=== PATIENT | female | born 1930 | race Caucasian/White ===

== ENCOUNTER 2018-05-05 19:56 | Inpatient (IN) | payer MEDICARE, OTHER ==
[~2018-05-05 19:56] MED LIST: ISOVUE-370 76%-LOCM 1 ML ONE
--- NOTE | 2018-05-05 21:07 | CT ---
CT ABDOMEN AND PELVIS WITH CONTRAST: 05/05/18 Multiple axial tomograms obtained through the abdomen and pelvis with IV enhancement. INDICATIONS: Abdominal pain. Sepsis. Lung bases appear clear. Large fixed diaphragmatic hernia with stomach above the diaphragm. Liver, spleen and pancreas unremarkable. Post cholecystectomy changes. Adrenal glands normal. Kidneys show cortical thinning. There is small bilateral renal cystic lesions. No hydronephrosis or u reteral calculus. Small bowel loops appear normal caliber. Prominent stool throughout the colon. Diverticulosis of the left colon. The uterus and adnexa are unremarkable. There appears to be a pessary in place. Prominent stool in th e rectum may represent constipation. Aorta is normal caliber. IMPRESSION: 1. Large fixed diaphragmatic hernia. 2. No acute process identified. POS: [facility]
[2018-05-05] MEDS ORDERED: Acetaminophen 325 MG TAB PO PRN (22:48)
[2018-05-05] MEDS ORDERED: Ondansetron HCl/PF 4 MG/2 ML Vial IVP PRN (22:48)
--- NOTE | 2018-05-06 00:26 | HP ---
CODE STATUS: DNR as per patient's living will. PRIMARY CARE PHYSICIAN: The patient goes to see ____. TIME OF EVALUATION: 10:25 p.m. CHIEF COMPLAINT: The patient was confused. HISTORY OF PRESENT ILLNESS: This is an 87-year-old female patient transferred to our ER because the patient was having some change in mental status. She reported having cough, associated with pain that has been present for the past few days, no clear triggers, no alleviating factors for the cough. The pain has been moderate. The patient also reported having some burning with urination. She was found to have a lactate of 2.4, with a white count elevated , started on broad-spectrum antibiotic, UA was positive. REVIEW OF SYSTEMS: Constitutional: Generalized weakness. No fever reported. No chills. Respiratory: The patient has cough and pleuritic chest pain. No sputum production. Also reported shortness of breath. Cardiovascular: No chest pain, palpitation, or shortness of breath. Gastrointestinal: No nausea or vomiting. No diarrhea. No abdominal pain. [employer]: No dizziness, headache, or feeling lightheaded. Genitourinary: No burning on urination. Extremities: Bilateral leg swelling. All other systems were reviewed and negative except for the findings mentioned above. PAST MEDICAL HISTORY: Positive for GERD, hypertension, osteoarthritis, COPD. PAST SURGICAL HISTORY: Right wrist, cholecystectomy, left arm surgery. PSYCHIATRIC HISTORY: No previous psychiatric history. FAMILY HISTORY: The patient reported mother having diabetes; and father having a stroke, at young age. SOCIAL HISTORY: No alcohol. No drugs. No smoking history. ALLERGIES: The patient has no known drug allergies. MEDICATIONS: Lasix, prednisone, allopurinol, pantoprazole, metoprolol, potassium p.o., calcitriol, folic acid, vitamin E, Tums, Robitussin. PHYSICAL EXAMINATION: VITAL SIGNS: On presentation, blood pressure 151/85, pulse 101, respiratory rate 18, temperature 98.7, pain was 8/10, saturation 99% on room air. GENERAL APPEARANCE: Alert, oriented, not in any acute distress. HEENT: Eye, normal conjunctivae. Moist oral mucosa. Anicteric. NECK: No JVD. RESPIRATORY: Bilateral air entry. No rales, no wheezing. Symmetric expansion. CARDIOVASCULAR: Normal rate, regular rhythm. No murmurs. No gallop. Bilateral leg edema. ABDOMEN: Soft. Normal bowel sounds. MUSCULOSKELETAL: Baseline range of motion and strength. No tenderness. SKIN: Warm and intact. No pallor, no rash, no redness. NEUROLOGIC: Baseline sensorium. No evidence of any new focal weakness. Baseline speech. Cranial nerve, sensory intact. PSYCHIATRIC: Good mood. No anxiety. Oriented. Optimal judgment. LABORATORY DATA: Reviewed with the ER doctor. It was reported that the patient has lactic acidosis of 2.4 with white count 19.8. No other abnormal labs were reported. Abdomen and pelvis CT was done, it reported large fixed diaphragmatic hernia, no acute process. UA was positive. ASSESSMENT AND PLAN: The patient was placed in the hospital with following medical problems. 1. Possible sepsis. The patient has reported fever, lactic acidosis, white count 19.8, likely source is urinary tract infection. Urinalysis reported positive by the ER doctor during admission discussion. hyration, follow cultures , adjust antibiotics as needed. 2. Urinary tract infection, urinalysis positive. The patient received broad- spectrum antibiotics, I will continue for now.follow cultures , adjust asper sensitivity. 3. Uncontrolled hypertension with systolic 151. Reconcile home medications. Adjust treatment as needed. 4. Acute encephalopathy. During my interview, the patient seems to be able to answer simple questions and seems oriented; however, it has been reported that she was confused prior to arrival, likely secondary to underlying infection. 5. History of gout. Continue allopurinol. 6. History of chronic obstructive pulmonary disease. We will reconcile home medications. Once updated, we will adjust treatment as needed. 7. Possible history of congestive heart failure. The patient has been on diuretics. She does not recall details on this. We will reconcile home medications. We will not treat aggressively since the patient is with possible sepsis. 8. Deep venous thrombosis prophylaxis. [facility]
[2018-05-06 01:38] VITALS: BMI 29.0
[2018-05-06 04:50] LABS: #Eosinphils 0.1 thou/uL (0.0-0.7); #Lymphocytes 0.8 thou/uL (1.20-3.40); #Neutrophils 9.3 thou/uL (1.40-6.50); %Basophils 0.3 % (0.0-1.0); %Eosinophils 0.6 % (0.0-10.0); %Lymphocytes 7.1 % (21.0-51.0); %Monocytes 8.8 % (0.0-10.0); %Neutrophils 83.3 % (42.0-75.0); Hemoglobin 8.6 g/dL (12.0-16.0); Mean Corpuscular HGB CONC 33.1 g/dL (32.0-36.0); Mean Corpuscular Hemoglobin 30.9 pg (27.0-31.0); Mean Corpuscular Volume 93.4 fL (78.0-98.0); Mean Platelet Volume 8.4 fL (7.4-10.4); Platelet Count 179 thou/uL (130-400); RBC Distribution Width 13.1 % (11.5-14.5); Red Blood Cell (RBC) Count 2.79 mill/uL (4.20-5.40); White Blood Cell (WBC) Count 11.2 thou/uL (4.8-10.8)
[2018-05-06 05:05] LABS: Anion Gap 12 mmol/L (10-20); BUN (Urea Nitrogen) 26 mg/dL (9.8-20.1); Calc. Creatinine Clearance 54 mL/min (70-130); Calcium 8.3 mg/dL (7.8-10.44); Carbon Dioxide 22 mmol/L (23-31); Chloride 107 mmol/L (98-107); Estimated GFR-MDRD 53; Glucose 95 mg/dL (83-110); Potassium 3.8 mmol/L (3.5-5.1); Sodium 137 mmol/L (136-145)
[2018-05-06] MEDS: Enoxaparin Sodium 40 MG/0.4 ML SYRINGE SC SCH (08:30)
[2018-05-06] MEDS ORDERED: Diabetic Tussin 200 MG/10 ML UDCUP PO PRN (12:18)
[2018-05-06] MEDS ORDERED: Labetalol HCl 100 MG/20 ML VIAL SLOW IVP PRN (12:18)
[2018-05-06] MEDS ORDERED: Temazepam 15 MG CAP PO PRN (12:18)
[2018-05-06] MEDS ORDERED: Benzonatate 100 MG CAP PO PRN (12:18)
[2018-05-06] MEDS ORDERED: cloNIDine 0.1 MG TAB PO PRN (12:18)
[2018-05-06] MEDS ORDERED: Phenergan/Codeine 10-6.25mg/5ml UDCUP PO PRN (12:18)
[2018-05-06] MEDS ORDERED: Docusate 100 MG CAP PO PRN (12:18)
[2018-05-06] MEDS ORDERED: diphenhydrAMINE 50 MG/ML VIAL IVP PRN (12:18)
[2018-05-06] MEDS ORDERED: Nitroglycerin 0.4 MG TAB (25 Tab Bottle) SL PRN (12:18)
[2018-05-06] MEDS ORDERED: Chloraseptic Spray 180 ml Bottle PO PRN (12:18)
--- NOTE | 2018-05-06 12:23 | PDOC.PN ---
- Subjective Encounter Start Date: 05/06/18 Encounter Start Time: 10:30 Subjective: awake, feels weak -: no sob or palp or abd pain -: no nausea or vomiting - Objective Resuscitation Status: Resuscitation Status DNR:Do Not Resuscitate MAR Reviewed: Yes Vital Signs & Weight: Vital Signs (12 hours) Temp Pulse Resp BP Pulse Ox 05/06/18 11:28 98.2 F 86 16 137/90 95 05/06/18 08:00 97.6 F 75 16 97 05/06/18 07:35 97.6 F 75 16 114/78 95 05/06/18 04:46 98.0 F 76 18 118/70 98 05/06/18 01:20 98.5 F 88 20 97 05/06/18 01:00 98.5 F 88 20 121/64 97 Weight Weight 184 lb 15.485 oz I&O: 05/05/18 05/06/18 05/07/18 06:59 06:59 06:59 Intake Total 450 Balance 450 Result Diagrams: 05/06/18 03:58 05/06/18 03:58 Phys Exam - Physical Examination HEENT: PERRLA dry mucosa Neck: no JVD, supple Respiratory: no wheezing, no rales Cardiovascular: RRR, no significant murmur Gastrointestinal: soft, non-tender, positive bowel sounds Musculoskeletal: no edema, pulses present Neurological: non-focal, moves all 4 limbs Psychiatric: normal affect, A&O x 3 Dx/Plan (1) Sepsis Code(s): A41.9 - SEPSIS, UNSPECIFIED ORGANISM Status: Acute Qualifiers: Sepsis type: sepsis due to unspecified organism Qualified Code(s): A41.9 - Sepsis, unspecified organism (2) UTI (urinary tract infection) Status: Acute Qualifiers: Urinary tract infection type: acute cystitis Hematuria presence: without hematuria Qualified Code(s): N30.00 - Acute cystitis without hematuria (3) Acute encephalopathy Code(s): G93.40 - ENCEPHALOPATHY, UNSPECIFIED Status: Resolved (4) Psoriasis Code(s): L40.9 - PSORIASIS, UNSPECIFIED Status: Chronic (5) Hiatal hernia Code(s): K44.9 - DIAPHRAGMATIC HERNIA WITHOUT OBSTRUCTION OR GANGRENE Status: Chronic Comment: large (6) Chronic anemia Code(s): D64.9 - ANEMIA, UNSPECIFIED Status: Chronic (7) HTN (hypertension) Code(s): I10 - ESSENTIAL (PRIMARY) HYPERTENSION Status: Chronic Qualifiers: Hypertension type: essential hypertension Qualified Code(s): I10 - Essential (primary) hypertension (8) COPD (chronic obstructive pulmonary disease) Status: Chronic Qualifiers: COPD type: unspecified COPD Qualified Code(s): J44.9 - Chronic obstructive pulmonary disease, unspecified - Plan is on ceftriaxone -: continue home dose of prednisone (for severe OA per patient,on it for >10y) -: await cultures -: to amb as tolerated -: encourage po intake * . Review of Systems - Medications/Allergies Allergies/Adverse Reactions: Allergies Allergy/AdvReac Type Severity Reaction Status Date / Time No Known Drug Allergies Allergy Unverified 05/05/18 22:58 Medications: Current Medications Acetaminophen (Tylenol) 650 mg PO Q4H PRN PRN Reason: Headache/Fever or Pain Allopurinol (Zyloprim) 100 mg PO DAILY [facility] Benzonatate (Tessalon) 200 mg PO Q6H PRN PRN Reason: Cough Calcium Carbonate (Tums) 1,000 mg PO BID [facility] Clonidine (Catapres) 0.1 mg PO Q4H PRN PRN Reason: Systolic BP > 180 Diphenhydramine HCl (Benadryl) 25 mg IVP Q4H PRN PRN Reason: Itching Docusate Sodium (Colace) 100 mg PO BIDPRN PRN PRN Reason: Constipation Enoxaparin Sodium (Lovenox) 40 mg SC 0900 [facility] Last Admin: 05/06/18 08:30 Dose: 40 mg Guaifenesin (Robitussin Sf) 200 mg PO Q4H PRN PRN Reason: Cough Ceftriaxone Sodium 1 gm/ (Sodium Chloride) 100 mls @ 200 mls/hr IVPB Q24HR [facility] Labetalol HCl (Normodyne) 20 mg SLOW IVP Q4H PRN PRN Reason: Systolic BP > 180 Metoprolol Succinate (Toprol Xl) 25 mg PO BID [facility] Nitroglycerin (Nitrostat) 0.4 mg SL Q5MIN PRN PRN Reason: Chest Pain Non-Formulary Medication (Folic Acid [Folic Acid]) 1 tab PO BID [facility] Ondansetron HCl (Zofran) 4 mg IVP Q6H PRN PRN Reason: Nausea/Vomiting Pantoprazole Sodium (Protonix) 40 mg PO BID [facility] Phenol (Chloraseptic [place] 180 Ml Bot) 0 ml PO PRN PRN PRN Reason: Sore Throat Prednisone (Prednisone) 3 mg PO DAILY [facility] Promethazine HCl/Codeine (Phenergan/Codeine Syrup) 5 ml PO Q4H PRN PRN Reason: Cough Temazepam (Restoril) 15 mg PO HSPRN PRN PRN Reason: Insomnia
[2018-05-06] MEDS: Folic Acid 1 MG TAB PO SCH (20:36)
[2018-05-06] MEDS: cefTRIAXone\\ROCEPHIN 1 GM in Sodium Chloride 0.9% 100 ML IVPB SCH (20:36)
[2018-05-06] MEDS: Calcium Carbonate 500 MG ChewTAB PO SCH (20:36)
[2018-05-07 07:46] LABS: #Eosinphils 0.2 thou/uL (0.0-0.7); #Lymphocytes 0.7 thou/uL (1.20-3.40); #Monocytes 0.7 thou/uL (0.11-0.59); #Neutrophils 7.2 thou/uL (1.40-6.50); %Basophils 0.1 % (0.0-1.0); %Eosinophils 2.1 % (0.0-10.0); %Lymphocytes 7.8 % (21.0-51.0); %Monocytes 8.4 % (0.0-10.0); %Neutrophils 81.6 % (42.0-75.0); Hemoglobin 8.7 g/dL (12.0-16.0); Mean Corpuscular Hemoglobin 30.2 pg (27.0-31.0); Mean Corpuscular Volume 94.4 fL (78.0-98.0); Mean Platelet Volume 7.8 fL (7.4-10.4); Platelet Count 203 thou/uL (130-400); Red Blood Cell (RBC) Count 2.89 mill/uL (4.20-5.40); White Blood Cell (WBC) Count 8.8 thou/uL (4.8-10.8)
[2018-05-07 08:05] LABS: Anion Gap 11 mmol/L (10-20); BUN (Urea Nitrogen) 26 mg/dL (9.8-20.1); Calc. Creatinine Clearance 59 mL/min (70-130); Calcium 8.9 mg/dL (7.8-10.44); Carbon Dioxide 23 mmol/L (23-31); Chloride 108 mmol/L (98-107); Estimated GFR-MDRD 59; Glucose 92 mg/dL (83-110); Potassium 3.9 mmol/L (3.5-5.1); Sodium 138 mmol/L (136-145)
[2018-05-07] MEDS: Calcium Carbonate 500 MG ChewTAB PO SCH ×2 (08:23→20:17)
[2018-05-07] MEDS: predniSONE 1 MG TAB PO SCH (08:23)
[2018-05-07] MEDS: guaiFENesin ER 600 MG TAB PO PRN (08:24)
[2018-05-07] MEDS: Allopurinol 100 MG TAB PO SCH (08:25)
[2018-05-07] MEDS: Folic Acid 1 MG TAB PO SCH ×2 (08:25→20:17)
[2018-05-07] MEDS: Enoxaparin Sodium 40 MG/0.4 ML SYRINGE SC SCH (08:47)
--- NOTE | 2018-05-07 11:24 | PDOC.PN ---
- Subjective Encounter Start Date: 05/07/18 Encounter Start Time: 11:00 Subjective: is amb in room, feels better - Objective Resuscitation Status: Resuscitation Status DNR:Do Not Resuscitate MAR Reviewed: Yes Vital Signs & Weight: Vital Signs (12 hours) Temp Pulse Resp BP Pulse Ox 05/07/18 08:00 98.0 F 80 18 05/07/18 07:36 98.0 F 80 18 126/89 94 L Weight Weight 184 lb 15.485 oz I&O: 05/06/18 05/07/18 05/08/18 06:59 06:59 06:59 Intake Total 450 Balance 450 Result Diagrams: 05/07/18 07:34 05/07/18 07:34 Phys Exam - Physical Examination HEENT: PERRLA, sclera anicteric Neck: no JVD, supple Respiratory: no wheezing, no rales Cardiovascular: RRR, no significant murmur Gastrointestinal: soft, non-tender, positive bowel sounds Musculoskeletal: no edema, pulses present Neurological: non-focal, moves all 4 limbs Psychiatric: A&O x 3 Dx/Plan (1) Sepsis Code(s): A41.9 - SEPSIS, UNSPECIFIED ORGANISM Status: Acute Qualifiers: Sepsis type: sepsis due to unspecified organism Qualified Code(s): A41.9 - Sepsis, unspecified organism (2) UTI (urinary tract infection) Status: Acute Qualifiers: Urinary tract infection type: acute cystitis Hematuria presence: without hematuria Qualified Code(s): N30.00 - Acute cystitis without hematuria (3) Acute encephalopathy Code(s): G93.40 - ENCEPHALOPATHY, UNSPECIFIED Status: Resolved (4) Psoriasis Code(s): L40.9 - PSORIASIS, UNSPECIFIED Status: Chronic (5) Hiatal hernia Code(s): K44.9 - DIAPHRAGMATIC HERNIA WITHOUT OBSTRUCTION OR GANGRENE Status: Chronic Comment: large (6) Chronic anemia Code(s): D64.9 - ANEMIA, UNSPECIFIED Status: Chronic (7) HTN (hypertension) Code(s): I10 - ESSENTIAL (PRIMARY) HYPERTENSION Status: Chronic Qualifiers: Hypertension type: essential hypertension Qualified Code(s): I10 - Essential (primary) hypertension (8) COPD (chronic obstructive pulmonary disease) Status: Chronic Qualifiers: COPD type: unspecified COPD Qualified Code(s): J44.9 - Chronic obstructive pulmonary disease, unspecified - Plan on ceftriaxone, await culture results from [facility] -: on home dose of prednisone, toprol and protonix -: to amb as tolerated -: dc plan when culture results are available * . Review of Systems - Medications/Allergies Allergies/Adverse Reactions: Allergies Allergy/AdvReac Type Severity Reaction Status Date / Time No Known Drug Allergies Allergy Verified 05/06/18 15:33 Medications: Current Medications Acetaminophen (Tylenol) 650 mg PO Q4H PRN PRN Reason: Headache/Fever or Pain Last Admin: 05/06/18 17:47 Dose: 650 mg Allopurinol (Zyloprim) 100 mg PO DAILY [facility] Last Admin: 05/07/18 08:25 Dose: 100 mg Benzonatate (Tessalon) 200 mg PO Q6H PRN PRN Reason: Cough Calcium Carbonate (Tums) 1,000 mg PO BID [facility] Last Admin: 05/07/18 08:23 Dose: 1,000 mg Clonidine (Catapres) 0.1 mg PO Q4H PRN PRN Reason: Systolic BP > 180 Diphenhydramine HCl (Benadryl) 25 mg IVP Q4H PRN PRN Reason: Itching Docusate Sodium (Colace) 100 mg PO BIDPRN PRN PRN Reason: Constipation Enoxaparin Sodium (Lovenox) 40 mg SC 0900 [facility] Last Admin: 05/07/18 08:47 Dose: 40 mg Folic Acid (Folvite) 1 mg PO BID [facility] Last Admin: 05/07/18 08:25 Dose: 1 mg Guaifenesin (Robitussin Sf) 200 mg PO Q4H PRN PRN Reason: Cough Last Admin: 05/06/18 15:33 Dose: 200 mg Guaifenesin (Mucinex) 600 mg PO Q12H PRN PRN Reason: COUGH/CONGESTION Last Admin: 05/07/18 08:24 Dose: 600 mg Ceftriaxone Sodium 1 gm/ (Sodium Chloride) 100 mls @ 200 mls/hr IVPB Q24HR [facility] Last Admin: 05/06/18 20:36 Dose: 100 mls Labetalol HCl (Normodyne) 20 mg SLOW IVP Q4H PRN PRN Reason: Systolic BP > 180 Metoprolol Succinate (Toprol Xl) 25 mg PO BID [facility] Last Admin: 05/07/18 08:24 Dose: 25 mg Nitroglycerin (Nitrostat) 0.4 mg SL Q5MIN PRN PRN Reason: Chest Pain Ondansetron HCl (Zofran) 4 mg IVP Q6H PRN PRN Reason: Nausea/Vomiting Pantoprazole Sodium (Protonix) 40 mg PO BID [facility] Last Admin: 05/07/18 08:25 Dose: 40 mg Phenol (Chloraseptic [place] 180 Ml Bot) 0 ml PO PRN PRN PRN Reason: Sore Throat Prednisone (Prednisone) 3 mg PO DAILY [facility] Last Admin: 05/07/18 08:23 Dose: 3 mg Promethazine HCl/Codeine (Phenergan/Codeine Syrup) 5 ml PO Q4H PRN PRN Reason: Cough Temazepam (Restoril) 15 mg PO HSPRN PRN PRN Reason: Insomnia
[2018-05-07] MEDS: cefTRIAXone\\ROCEPHIN 1 GM in Sodium Chloride 0.9% 100 ML IVPB SCH (23:04)
[2018-05-08 04:50] LABS: #Basophils 0.1 thou/uL (0.0-0.2); #Eosinphils 0.2 thou/uL (0.0-0.7); #Lymphocytes 1.1 thou/uL (1.20-3.40); #Monocytes 0.8 thou/uL (0.11-0.59); #Neutrophils 6.7 thou/uL (1.40-6.50); %Basophils 0.6 % (0.0-1.0); %Eosinophils 2.8 % (0.0-10.0); %Lymphocytes 12.1 % (21.0-51.0); %Monocytes 8.6 % (0.0-10.0); %Neutrophils 75.9 % (42.0-75.0); Hemoglobin 8.2 g/dL (12.0-16.0); Mean Corpuscular HGB CONC 32.7 g/dL (32.0-36.0); Mean Corpuscular Hemoglobin 30.8 pg (27.0-31.0); Mean Corpuscular Volume 94.2 fL (78.0-98.0); Platelet Count 241 thou/uL (130-400); RBC Distribution Width 13.2 % (11.5-14.5); Red Blood Cell (RBC) Count 2.66 mill/uL (4.20-5.40); White Blood Cell (WBC) Count 8.8 thou/uL (4.8-10.8)
[2018-05-08 05:20] LABS: Anion Gap 12 mmol/L (10-20); BUN (Urea Nitrogen) 21 mg/dL (9.8-20.1); Calc. Creatinine Clearance 53 mL/min (70-130); Calcium 8.6 mg/dL (7.8-10.44); Carbon Dioxide 24 mmol/L (23-31); Chloride 107 mmol/L (98-107); Estimated GFR-MDRD 53; Glucose 87 mg/dL (83-110); Sodium 139 mmol/L (136-145)
[2018-05-08 07:41] VITALS: BP 142/94; TEMP 98.1
[2018-05-08] MEDS: predniSONE 1 MG TAB PO SCH (08:06)
[2018-05-08] MEDS: Allopurinol 100 MG TAB PO SCH (08:06)
[2018-05-08] MEDS: Calcium Carbonate 500 MG ChewTAB PO SCH (08:07)
[2018-05-08] MEDS: Folic Acid 1 MG TAB PO SCH (08:07)
[2018-05-08] MEDS: guaiFENesin ER 600 MG TAB PO PRN (08:09)
[2018-05-08] MEDS: Enoxaparin Sodium 40 MG/0.4 ML SYRINGE SC SCH (08:22)
--- NOTE | 2018-05-08 12:24 | PDOC.PN ---
- Subjective Encounter Start Date: 05/08/18 Encounter Start Time: 11:00 Subjective: sitting in chair, no sob -: feels better - Objective Resuscitation Status: Resuscitation Status DNR:Do Not Resuscitate MAR Reviewed: Yes Vital Signs & Weight: Vital Signs (12 hours) Temp Pulse Resp BP Pulse Ox 05/08/18 07:40 98.1 F 81 20 142/94 H 93 L 05/08/18 07:05 97.9 F 81 20 05/08/18 00:49 97.9 F 81 20 135/60 98 Weight Weight 184 lb 15.485 oz Result Diagrams: 05/08/18 03:42 05/08/18 03:42 Phys Exam - Physical Examination HEENT: PERRLA, moist MMs Neck: no JVD, supple Respiratory: no wheezing, no rales Cardiovascular: RRR, no significant murmur Gastrointestinal: soft, non-tender, positive bowel sounds Musculoskeletal: no edema, pulses present Neurological: non-focal, moves all 4 limbs Psychiatric: A&O x 3 Dx/Plan (1) Sepsis Code(s): A41.9 - SEPSIS, UNSPECIFIED ORGANISM Status: Resolved Qualifiers: Sepsis type: Pseudomonas Qualified Code(s): A41.52 - Sepsis due to Pseudomonas (2) UTI (urinary tract infection) Status: Acute Qualifiers: Urinary tract infection type: acute cystitis Hematuria presence: without hematuria Qualified Code(s): N30.00 - Acute cystitis without hematuria (3) Acute encephalopathy Code(s): G93.40 - ENCEPHALOPATHY, UNSPECIFIED Status: Resolved (4) Psoriasis Code(s): L40.9 - PSORIASIS, UNSPECIFIED Status: Chronic (5) Hiatal hernia Code(s): K44.9 - DIAPHRAGMATIC HERNIA WITHOUT OBSTRUCTION OR GANGRENE Status: Chronic Comment: large (6) Chronic anemia Code(s): D64.9 - ANEMIA, UNSPECIFIED Status: Chronic (7) HTN (hypertension) Code(s): I10 - ESSENTIAL (PRIMARY) HYPERTENSION Status: Chronic Qualifiers: Hypertension type: essential hypertension Qualified Code(s): I10 - Essential (primary) hypertension (8) COPD (chronic obstructive pulmonary disease) Status: Chronic Qualifiers: COPD type: unspecified COPD Qualified Code(s): J44.9 - Chronic obstructive pulmonary disease, unspecified - Plan urine cs from [place] grew pseudomonas <50k sensitive to quinolones -: dc pt home -: to f/u with PCP in 1 week * . Review of Systems - Medications/Allergies Allergies/Adverse Reactions: Allergies Allergy/AdvReac Type Severity Reaction Status Date / Time No Known Drug Allergies Allergy Verified 05/06/18 15:33 Medications: Current Medications Acetaminophen (Tylenol) 650 mg PO Q4H PRN PRN Reason: Headache/Fever or Pain Last Admin: 05/06/18 17:47 Dose: 650 mg Allopurinol (Zyloprim) 100 mg PO DAILY [facility] Last Admin: 05/08/18 08:06 Dose: 100 mg Benzonatate (Tessalon) 200 mg PO Q6H PRN PRN Reason: Cough Calcium Carbonate (Tums) 1,000 mg PO BID [facility] Last Admin: 05/08/18 08:07 Dose: 1,000 mg Clonidine (Catapres) 0.1 mg PO Q4H PRN PRN Reason: Systolic BP > 180 Diphenhydramine HCl (Benadryl) 25 mg IVP Q4H PRN PRN Reason: Itching Docusate Sodium (Colace) 100 mg PO BIDPRN PRN PRN Reason: Constipation Enoxaparin Sodium (Lovenox) 40 mg SC 0900 [facility] Last Admin: 05/08/18 08:22 Dose: 40 mg Folic Acid (Folvite) 1 mg PO BID [facility] Last Admin: 05/08/18 08:07 Dose: 1 mg Guaifenesin (Robitussin Sf) 200 mg PO Q4H PRN PRN Reason: Cough Last Admin: 05/06/18 15:33 Dose: 200 mg Guaifenesin (Mucinex) 600 mg PO Q12H PRN PRN Reason: COUGH/CONGESTION Last Admin: 05/08/18 08:09 Dose: 600 mg Ceftriaxone Sodium 1 gm/ (Sodium Chloride) 100 mls @ 200 mls/hr IVPB Q24HR [facility] Last Admin: 05/07/18 23:04 Dose: 100 mls Labetalol HCl (Normodyne) 20 mg SLOW IVP Q4H PRN PRN Reason: Systolic BP > 180 Metoprolol Succinate (Toprol Xl) 25 mg PO BID [facility] Last Admin: 05/08/18 08:07 Dose: 25 mg Nitroglycerin (Nitrostat) 0.4 mg SL Q5MIN PRN PRN Reason: Chest Pain Ondansetron HCl (Zofran) 4 mg IVP Q6H PRN PRN Reason: Nausea/Vomiting Pantoprazole Sodium (Protonix) 40 mg PO BID [facility] Last Admin: 05/08/18 08:08 Dose: 40 mg Phenol (Chloraseptic [place] 180 Ml Bot) 0 ml PO PRN PRN PRN Reason: Sore Throat Prednisone (Prednisone) 3 mg PO DAILY [facility] Last Admin: 05/08/18 08:06 Dose: 3 mg Promethazine HCl/Codeine (Phenergan/Codeine Syrup) 5 ml PO Q4H PRN PRN Reason: Cough Temazepam (Restoril) 15 mg PO HSPRN PRN PRN Reason: Insomnia
--- NOTE | 2018-05-08 21:40 | DIS ---
DATE OF ADMISSION: 05/05/2018 DATE OF DISCHARGE: 05/08/2018 DISCHARGE DISPOSITION: To home. PRIMARY DISCHARGE DIAGNOSES: Sepsis with urinary tract infection, resolving; acute encephalopathy on arrival, resolved. SECONDARY DISCHARGE DIAGNOSES: Chronic anemia, hypertension, history of psoriasis, chronic obstructive pulmonary disease, hiatal hernia. PROCEDURES DONE DURING HOSPITALIZATION: The patient's urine culture which was taken at [facility] grew Pseudomonas less than 50,000 sensitive to quinolones. Abdominal and pelvic CAT scan done on admission showed no obstructive uropathy. There was large fixed diaphragmatic hernia. Discharge white count of 8, H and H 8 and 25, platelet count 241, MCV is 94, BUN 21, creatinine 1.0 on the day of discharge. DISCHARGE MEDICATIONS: Ciprofloxacin 500 mg p.o. twice daily for 5 days, calcitriol 1 capsule once weekly, allopurinol 100 mg daily, folic acid 0.8 mg twice daily, Lasix 20 mg on Thursday, Thursday, Thursday and 40 mg on Thursday, , Lopressor extended release 25 mg twice daily, Protonix 40 mg twice daily, K-Dur 10 mEq p.o. daily, prednisone 3 mg p.o. daily, vitamin E 400 units 1 capsule daily. ALLERGIES: No known drug allergies. DISCHARGE PLAN: The patient to follow up with primary care physician in 1 week. BRIEF COURSE DURING HOSPITALIZATION: The patient initially was sent over from [facility] ER for an episode of confusion along with cough. She was found to have had urinary tract infection. Cultures were obtained at [facility] and the patient was transferred here for higher level of care. She was gently hydrated. The patient's initial white count was 19 at [facility]. She was on ceftriaxone all through her stay and has been transitioned to ciprofloxacin based on culture results. Her urine culture has resulted today growing Pseudomonas less than 50,000cfu/ml. The patient has been afebrile all through her stay here. Her acute encephalopathy has completely resolved. She is tolerating oral solid diet. She is hemodynamically stable and will be shortly discharged home. Please see a face- to-face documentation on [facility] for the day of discharge. [facility]
== END 2018-05-08 14:20 | disposition home or self-care (01) | DRG 871 ==
LOC: ERS 19:56 → T4-A 22:05
PROVIDERS: ADMIT Hospitalist; ATTEND Hospitalist
DX: A41.9 Sepsis, unspecified organism (principal); G93.40 Encephalopathy, unspecified; N39.0 Urinary tract infection, site not specified; E87.2 Acidosis; B96.5 Pseudomonas (aeruginosa) (mallei) (pseudomallei) as the cause of diseases classified elsewhere; B96.89 Other specified bacterial agents as the cause of diseases classified elsewhere; I11.0 Hypertensive heart disease with heart failure; I50.9 Heart failure, unspecified; J44.9 Chronic obstructive pulmonary disease, unspecified; M10.9 Gout, unspecified; D64.9 Anemia, unspecified; L40.9 Psoriasis, unspecified; K44.9 Diaphragmatic hernia without obstruction or gangrene
CPT/HCPCS: 36415; 74177; 80048; 85025; 96365; J0696; J1650; J3370; J7050